=== PATIENT | male | born 1960 | race Caucasian/White ===

== ENCOUNTER 2017-10-17 21:39 | Inpatient (IN) | payer OTHER ==
[~2017-10-17] VITALS: Ht 170.2 cm; Wt 86.2 kg
[2017-10-17] MEDS ORDERED: AMITRIPTYLINE100 M2 PO (21:58)
[2017-10-17] MEDS ORDERED: NEURONTIN800 M2 PO (21:58)
[2017-10-17] MEDS ORDERED: CLONAZEPAM2 M2 PO (21:59)
--- NOTE | 2017-10-17 23:06 | ED PSYCHIATRIC COMPLAINT ---
History of Present Illness General Chief Complaint: Psychiatric Related Complaint Stated Complaint: "I WANT TO HURT MYSELF AND MY X /HEARING VOICE Source: patient Exam Limitations: no limitations Vital Signs & Intake/Output Vital Signs & Intake/Output Vital Signs Date Time Temp Pulse Resp B/P B/P Pulse O2 O2 Flow FiO2 Mean Ox Delivery Rate 10/17 2320 98.2 90 18 107/61 98 Room Air 10/17 2306 Room Air 10/17 2142 97.0 95 16 147/89 95 Room Air Allergies Coded Allergies: amoxicillin (Intermediate, RASH 10/17/17) morphine (Intermediate, HIVES 10/17/17) Reconcile Medications Amitriptyline HCl 100 MG TABLET 1 TAB PO QHS SLEEP (Reported) Clonazepam 2 MG TABLET 1 TAB PO TID ANXIETY/PANIC ATTACKS (Reported) Gabapentin (Neurontin) 800 MG TABLET 1 TAB PO TID SEIZURES (Reported) Triage Note: PT TO ED C/O HEARING VOICES TELLING HIM "TO END IT." STATES MOVED HERE RECENTLY AND HASNT TAKEN MEDS IN A WHILE. ALSO HAVING THOUGHTS TO HARM EX WELL. DENIES PLAN. Triage Nurses Notes Reviewed? yes Onset: 3 days Duration: day(s):, constant, continues in ED, getting worse Timing: recent history Severity: moderate, severe Associated Symptoms: anxiety, insomnia, suicidal ideation HPI: 3 days prior to admission patient has been without his psychiatric medications moving from [place] to [place]. During this time he has had increasing auditory command hallucinations to kill himself and his ex-. He also complains of rash of poison mark anthony. He denies fever chills nausea vomiting diarrhea abdominal pain chest pain shortness breath headache dysuria bleeding. Past History Travel History Traveled to [place] past 21 day No Medical History Any Pertinent Medical History? see below for history Psychiatric: anxiety, depression, METHADONE MAINTENANCE Surgical History Surgical History: non-contributory Psychosocial History What is your primary language Indonesian Tobacco Use: Current Daily Use Daily Tobacco Use Amount/Type: => 5 Cigarettes daily ETOH Use: denies use Illicit Drug Use: denies illicit drug use Family History Hx Contributory? No Review of Systems Review of Systems Constitutional: Reports: no symptoms. EENTM: Reports: no symptoms. Respiratory: Reports: no symptoms. Cardiovascular: Reports: no symptoms. GI: Reports: no symptoms. Genitourinary: Reports: no symptoms. Musculoskeletal: Reports: no symptoms. Skin: Reports: no symptoms. Neurological/Psychological: Reports: see HPI, anxiety, depressed. Hematologic/Endocrine: Reports: no symptoms. Immunologic/Allergic: Reports: no symptoms. All Other Systems: Reviewed and Negative Physical Exam Physical Exam General Appearance: well developed/nourished, alert, awake, anxious, moderate distress Head: atraumatic, normal appearance Eyes: Bilateral: PERRL, EOMI. Ears, Nose, Throat: normal pharynx, normal ENT inspection, hearing grossly normal Neck: normal inspection, supple Respiratory: normal breath sounds Cardiovascular: regular rate/rhythm Gastrointestinal: soft, non-tender Extremities: normal range of motion Neurological/Psychiatric: no motor/sensory deficits, awake, alert, anxious, single needle operator II-XII nml as tested, oriented x 3 Appearance/Memory/Insight: impaired insight Behavoir/Eye Contact/Speech: cooperative, normal speech Thoughts/Hallucinations: auditory hallucinations Skin: intact, normal color, warm/dry, rash SAD PERSONS SAD PERSONS Response Value Male Sex? yes 1 Age <19 or >45 years? yes 1 Depression/Hopelessness? yes 2 Previous Attempts/Psych Care yes 1 Rational Thinking Loss? yes 2 Single//? yes 1 Social Support? has no support 1 Stated Future Intent? yes 2 Total 11 SAD PERSONS Done? yes Progress Differential Diagnosis: drug intoxication, drug overdose, drug withdrawal, electrolyte abnormality, hypoglycemia Plan of Care: Orders Procedure Date/time Status Regular Diet 10/18 B Active Continuous Observation Monitor 10/18 629 Active Continuous Observation Monitor 10/18 229 Active Continuous Observation Monitor 10/18 2231 Active URINE DRUG SCREEN FOR ER ONLY 10/18 2231 Complete ETHANOL 10/18 2231 Complete COMPREHENSIVE METABOLIC PANEL 10/18 2231 Complete CBC WITHOUT DIFFERENTIAL 10/18 2231 Complete ED CRISIS PSYCH CONSULT 10/18 2231 Active Current Medications Sig/Alvin Start time Last Medication Dose Stop Time Status Admin Prednisone 20 MG BID 10/18 899 UNVr Diphenhydramine HCl 50 MG Q6 PRN 10/18 99 UNVr (Benadryl) Prednisone 60 MG ONCE ONE 10/18 99 UNVr 10/18 0334 Amitriptyline HCl 100 MG AT BEDTIME 10/17 2229 UNVr 10/17 (Elavil 50 MG Tablet) 2332 Clonazepam 2 MG TID 10/17 2229 UNVr 10/17 (Klonopin 1MG Tab) 10/24 2228 233 Gabapentin 800 MG TID 10/17 2229 UNVr 10/17 (Neurontin) 233 Laboratory Tests 10/18/17 0051: Anion Gap 5, Estimated GFR > 60, BUN/Creatinine Ratio 18.8, Glucose 97, Calcium 9.5, Total Bilirubin 0.4, AST 18, ALT 33, Alkaline Phosphatase 55, Total Protein 6.7, Albumin 3.9, Globulin 2.8, Albumin/Globulin Ratio 1.4, CBC w Diff NO MAN DIFF REQ, RBC 4.15 L, MCV 88.4, MCH 30.5, MCHC 34.5, RDW 13.2, MPV 7.1 L, Gran % 63.0, Lymphocytes % 28.4, Monocytes % 5.7, Eosinophils % 2.6, Basophils % 0.3, Absolute Granulocytes 5.2, Absolute Lymphocytes 2.3, Absolute Monocytes 0.5, Absolute Eosinophils 0.2, Absolute Basophils 0, Serum Alcohol < 10.0 10/17/172257: Urine Opiates Screen < 100, Methadone Screen > 735 H, Barbiturate Screen < 60, Ur Phencyclidine Scrn < 6.00, Amphetamines Screen 107, U Benzodiazepines Scrn 146, Urine Cocaine Screen < 50, Urine Cannabis Screen 6.60 Hand-Off Endorsed To: Krzysztof CALLE,Neal Endorsed Time: 0700 Pending: consult Departure Departure Disposition: STILL A PATIENT Condition: Stable Clinical Impression Primary Impression: Depression with suicidal ideation Secondary Impressions: Auditory hallucinations, Poison mark anthony dermatitis Referrals: Unknown (PCP/Family) Departure Forms: Customer Survey General Discharge Information
[2017-10-18 01:05] LABS: ABSOLUTE BASOPHIL COUNT 0 /CUMM (0.0-0.2); ABSOLUTE EOSINOPHIL COUNT 0.2 /CUMM (0.0-0.7); ABSOLUTE GRANULOCYTE CT 5.2 /CUMM (1.4-6.5); ABSOLUTE LYMPH COUNT 2.3 /CUMM (1.2-3.4); ABSOLUTE MONOCYTE COUNT 0.5 /CUMM (0.10-0.60); BASOPHIL % 0.3 % (0.0-2.0); EOSINOPHIL % 2.6 % (0-5); HEMATOCRIT 36.7 % (42-52); MEAN CORPUSCULAR HGB 30.5 PG (27.0-31.0); MEAN CORPUSCULAR HGB CONC 34.5 G/DL (33.0-37.0); MEAN CORPUSCULAR VOLUME 88.4 FL (80.0-94.0); MEAN PLATELET VOLUME 7.1 FL (7.4-10.4); PLATELET COUNT 255 /CUMM (130-400); RBC DISTRIBUTION WIDTH 13.2 % (11.5-14.5); RED BLOOD CELL CT 4.15 /CUMM (4.70-6.10); WHITE BLOOD CELL COUNT 8.2 /CUMM (4.8-10.8)
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
--- NOTE | 2017-10-18 16:03 | RADIOLOGY REPORT ---
EXAMINATION: XR ELBOW, LEFT CLINICAL INFORMATION: Elbow pain. Pain and swelling. COMPARISON: None TECHNIQUE: AP, lateral, and oblique views of the left elbow performed on 4 images. FINDINGS: No acute fracture or dislocation. Severe degenerative change seen at the medial elbow joint with narrowing of the ulna humeral joint, spurring and cystic change seen. The radiohumeral joint is intact and unremarkable. There is prominent enthesopathic ossification along the ulnar olecranon with overlying prominent soft tissue swelling. There is also some enthesopathic ossification along the medial humeral epicondyles at the common extensor tendon insertion. No significant elbow joint effusion is seen. No definite loose bodies within the joint are seen. IMPRESSION: 1. No acute fracture or dislocation. 2. Severe degenerative changes at the medial elbow joint. 3. Large hepatic spur at the ulna olecranon with overlying soft tissue swelling. 4. Mild enthesopathic spurring at the medial humeral epicondyle.
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
[2017-10-18 19:27] VITALS: BP 124/72
[2017-10-19 07:34] VITALS: BP 141/81
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
--- NOTE | 2017-10-19 14:43 | History & Physical ---
General Information and HPI MD Statement: I have seen and personally examined CLAUDIA CUMMINGS and documented this H&P. The patient is a 56 year old M who presented with a patient stated chief complaint of hallucinations Source of Information: patient Exam Limitations: no limitations History of Present Illness: 56-year-old male with past medical history significant for depression and, anxiety, methadone dependence, history of traumatic brain injury and a seizure disorder admitted to [facility] after he was hearing voices to harm himself and his ex-. Patient apparently fell off the hill and hit his head to the [place]. He was seen at [facility] and was cleared to get discharged. During that fall he had an exposure to poison roxanna and developed a rash. In the emergency room he was started on the prednisone. Psychiatry team wants me to taper the prednisone. He also scraped his left elbow. Currently his only concern is about his methadone. He denies any shortness of breath, chest pain, abdominal pain. Allergies/Medications Allergies: Coded Allergies: amoxicillin (Intermediate, RASH 10/17/17) morphine (Intermediate, HIVES 10/17/17) Home Med list Amitriptyline HCl 100 MG TABLET 1 TAB PO QHS SLEEP (Reported) Clonazepam 2 MG TABLET 1 TAB PO TID ANXIETY/PANIC ATTACKS (Reported) Gabapentin (Neurontin) 800 MG TABLET 1 TAB PO TID SEIZURES (Reported) Past History Travel History Traveled to [place] past 21 day No Medical History Neurological: seizure EENT: NONE Respiratory: NONE Gastrointestinal: NONE Hepatic: NONE Musculoskeletal: NONE Psychiatric: anxiety, depression, METHADONE MAINTENANCE Endocrine: NONE Blood Disorders: NONE Cancer(s): NONE RESEARCH ATTORNEY/Reproductive: NONE History of MRSA: No History of VRE: No History of CDIFF: No Isolation History: Standard Surgical History Surgical History: non-contributory Past Family/Social History Family History Relations & Conditions if any FATHER Relation not specified for: FH: CAD (coronary artery disease) Psychosocial History Where do you live? Home ETOH Use: denies use Illicit Drug Use: denies illicit drug use Review of Systems Review of Systems Constitutional: Reports: see HPI. EENTM: Reports: see HPI. Cardiovascular: Reports: see HPI. Respiratory: Reports: see HPI. GI: Reports: see HPI. Skin: Reports: see HPI. Neurological/Psychological: Reports: see HPI. Exam & Diagnostic Data Last 24 Hrs of Vital Signs/I&O Vital Signs Date Time Temp Pulse Resp B/P B/P Pulse O2 O2 Flow FiO2 Mean Ox Delivery Rate 10/19 1424 Room Air 10/19 0734 98.2 71 141/81 10/18 1927 98.3 75 124/72 10/18 1707 98.1 93 18 128/80 94 Room Air Intake & Output 10/19 1600 10/19 0800 10/19 0000 Intake Total Output Total Balance Patient 190 lb 190 lb Weight Physical Exam General Appearance Alert, Oriented X3, Cooperative Skin Poison ROXANNA rash Neck Supple Cardiovascular Regular Rate, Normal S1, Normal S2 Lungs Clear to Auscultation Abdomen Normal Bowel Sounds, Soft, No Tenderness Neurological Cranial Nerves II through XII: Inatct Last 24 Hrs of Labs/Leon: Laboratory Tests 10/18 10/17 0051 2258 Chemistry Sodium (137 - 145 mmol/L) 139 Potassium (3.5 - 5.1 mmol/L) 4.1 Chloride (98 - 107 mmol/L) 100 Carbon Dioxide (22 - 30 mmol/L) 34 H Anion Gap (5 - 16) 5 BUN (9 - 20 mg/dL) 15 Creatinine (0.7 - 1.2 mg/dL) 0.8 Estimated GFR (>60 ml/min) > 60 BUN/Creatinine Ratio (7 - 25 %) 18.8 Glucose (65 - 99 mg/dL) 97 Hemoglobin A1c (4.2 - 5.8 %) 5.7 Calcium (8.4 - 10.2 mg/dL) 9.5 Total Bilirubin (0.2 - 1.3 mg/dL) 0.4 AST (17 - 59 U/L) 18 ALT (21 - 72 U/L) 33 Alkaline Phosphatase (< 127 U/L) 55 Total Protein (6.3 - 8.2 g/dL) 6.7 Albumin (3.5 - 5.0 g/dL) 3.9 Globulin (1.9 - 4.2 gm/dL) 2.8 Albumin/Globulin Ratio (1.1 - 2.2 %) 1.4 Triglycerides (<150 mg/dL) 134 Cholesterol (< 200 MG/DL) 183 LDL Cholesterol, Calc (65 - 129 mg/dL) 109 HDL Cholesterol (40 - 60 mg/dL) 48 Cholesterol/HDL Ratio (0.00 - 4.88 %) 4 TSH &T3 &Free T4 Intrp (0.27 - 4.20 uIU/mL) 1.940 Hematology CBC w Diff NO MAN DIFF REQ WBC (4.8 - 10.8 /CUMM) 8.2 RBC (4.70 - 6.10 /CUMM) 4.15 L Hgb (14.0 - 18.0 G/DL) 12.7 L Hct (42 - 52 %) 36.7 L MCV (80.0 - 94.0 FL) 88.4 MCH (27.0 - 31.0 PG) 30.5 MCHC (33.0 - 37.0 G/DL) 34.5 RDW (11.5 - 14.5 %) 13.2 Plt Count (130 - 400 /CUMM) 255 MPV (7.4 - 10.4 FL) 7.1 L Gran % (42.2 - 75.2 %) 63.0 Lymphocytes % (20.5 - 51.1 %) 28.4 Monocytes % (1.7 - 9.3 %) 5.7 Eosinophils % (0 - 5 %) 2.6 Basophils % (0.0 - 2.0 %) 0.3 Absolute Granulocytes (1.4 - 6.5 /CUMM) 5.2 Absolute Lymphocytes (1.2 - 3.4 /CUMM) 2.3 Absolute Monocytes (0.10 - 0.60 /CUMM) 0.5 Absolute Eosinophils (0.0 - 0.7 /CUMM) 0.2 Absolute Basophils (0.0 - 0.2 /CUMM) 0 Toxicology Urine Opiates Screen (>2000 NG/ML) < 100 Methadone Screen (>300 NG/ML) > 735 H Barbiturate Screen (>200 NG/ML) < 60 Ur Phencyclidine Scrn (>25 NG/ML) < 6.00 Amphetamines Screen (>1000 NG/ML) 107 U Benzodiazepines Scrn (>200 NG/ML) 146 Urine Cocaine Screen (>300 NG/ML) < 50 Urine Cannabis Screen (>50 NG/ML) 6.60 Serum Alcohol (<10 MG/DL) < 10.0 Assessment/Plan Assessment: 56-year-old male with history significant for depression, anxiety, methadone dependence, traumatic brain injury and seizure disorder admitted to [facility] secondary to having auditory hallucinations of harming himself and his ex-. Continue Neurontin which he takes for his seizure disorder. Patient is concerned about his methadone. I conveyed this message to the and [facility] nursing staff. His vital signs are stable. I have reviewed his labs. Further psychiatric management will be up to the psychiatrist. As Ranked By This Provider Problem List: 1. Depression with suicidal ideation 2. Auditory hallucinations 3. Poison roxanna dermatitis 4. Seizure disorder Miscellaneous Miscellaneous Documentation Attending Case Discussed With: Rossana Gonzalez MD Primary Care Physician: Unknown Patient sees these Specialists Unknown Level of Patient Care: [facility]
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
--- NOTE | 2017-10-19 15:42 | SOCIAL WORKER PROG NOTE PSYCH ---
Dejuan Langston 10/19/17 1540: Social Work Progress Note Progress Note I Dejuan Langston (SUPERVISOR [employer] [address] National Coverage Specialist) met with John in his room to complete his social history. The patient was lying in bed for the session. He was engaged and cooperative during the conversation. He appeared to be guarded when asked about his past substance use treatment.
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
[2017-10-19 19:51] VITALS: BP 140/77
[2017-10-20 06:59] VITALS: BP 126/77
[2017-10-20 07:42] VITALS: BP 126/77
--- NOTE | 2017-10-20 13:58 | CP SOUTH PROGRESS NOTE PSYCH ---
Psych (Inpt) Progress Note Progress Note Include the following elements, when applicable: Involvement in the active treatment of the patient with behavioral observations of the patient and the patient's response to the treatment. Review of the ongoing treatment process in the context of the treatment plan. Indication of how multi-disciplinary staff members are carrying out the treatment plan. Plans for future interventions and recommendations for revision of the treatment plan. Liaison with other physicians/providers. Progress Note: Case discussed with nurse, who reports that the patient endorses suicidal ideation. Wants more methadone. Wants an increase in nicotine gum to 4 mg. Hyperverbal. Patient seen at 10:26 AM. Wants an increase in Nicorette dose to 4 mg and I made this change. Wants methadone increased to 50 mg and I defer this to his methadone clinic. Reports he woke up at 6 a.m. with terrible, terrible thoughts of hurting himself but not his ex-. Affect is somewhat intense. Tolerating medications well, without complaint. Reports ongoing command auditory hallucinations to hurt himself. Reports mood is relaxed from a hot shower. Rates sad mood 7/10 and anxiety 9/10. Feels hopeless, worthless and guilty. Denies feeling helpless. Reports suicidal ideation. Gives a safety promise for here. Denies homicidal ideation. Denies visual hallucinations and paranoid ideation. Reports he had 2 middle of the night awakenings. Appetite is fine. Energy is a little bit sluggish. Patient agreed to an increase in Risperdal dose to 1 mg twice daily. IMPRESSION: Slow progress. Continue present treatment plan. Continues to require inpatient level of care.
[2017-10-20 19:54] VITALS: BP 148/82
[2017-10-21 07:39] VITALS: BP 136/74
--- NOTE | 2017-10-21 14:59 | CP SOUTH PROGRESS NOTE PSYCH ---
Psych (Inpt) Progress Note Progress Note Include the following elements, when applicable: Involvement in the active treatment of the patient with behavioral observations of the patient and the patient's response to the treatment. Review of the ongoing treatment process in the context of the treatment plan. Indication of how multi-disciplinary staff members are carrying out the treatment plan. Plans for future interventions and recommendations for revision of the treatment plan. Liaison with other physicians/providers. Progress Note: Case and treatment plan discussed with nurse, who reports that the patient is endorsing suicidal ideation. Uses foul language. Was loud on the phone. Got an order from hospitalist for Percocet for his arm. Nurse reported to me that staff overheard patient on the phone stating the only reason he is here is because he has no place to go. Patient seen at 11:21 AM. States he is okay, up and down. Affect is calm and depressed. Reports that "when my girl starts giving me a hard time, the voices start going towards me and my ex-." States he just got off the phone with his girlfriend and she hung up. Reports now he has command auditory hallucinations to hurt himself, his ex- and his girlfriend. Claims his girlfriend gives him a hard time. Mood is terrible. Rates sad mood and anxiety both 9/10. Feels hopeless, helpless and worthless but not guilty. Does not want to end his life but the voices make him feel that way. He gives a safety promise for here. Does not want to hurt anyone. Denies visual hallucinations but sees himself ending his life. Denies paranoid ideation. Reports he slept well with Percocet. I advised him that he will not be receiving additional opiates. Appetite is okay. Tolerating medications well, without complaint. He agrees to increase Risperdal dose to 1.5 mg twice daily. IMPRESSION: Slow progress. Continue present treatment plan. Remains symptomatic in the context of apparent homelessness. Reporting that command auditory hallucinations worsen related to stress from girlfriend. Monitor response to increase in Risperdal dose.
[2017-10-21 20:00] VITALS: BP 147/90
[2017-10-22 07:34] VITALS: BP 143/80
--- NOTE | 2017-10-22 13:51 | CP SOUTH PROGRESS NOTE PSYCH ---
Psych (Inpt) Progress Note Progress Note Include the following elements, when applicable: Involvement in the active treatment of the patient with behavioral observations of the patient and the patient's response to the treatment. Review of the ongoing treatment process in the context of the treatment plan. Indication of how multi-disciplinary staff members are carrying out the treatment plan. Plans for future interventions and recommendations for revision of the treatment plan. Liaison with other physicians/providers. Inpatient progress note PROGRESS NOTE/TREATMENT REVIEW PATIENT INFORMATION John Salas admitted for SI AH HI, on methadone. TREATMENT TEAM Reviewed by Treatment Team, following member present: nurse, health social work professor, faculty physicians. John voiced SI this am despite being slated for possible d/ c. Upset about methadone dose. VITAL SIGNS/RESULTS Stable QTc under 450 10/19 24 HOUR LAB RESULTS Laboratory Tests 10/20/17 0655: Amitriptyline Pending, Amitriptyline&Nortrip Pending, Nortriptyline Pending SCHEDULED MEDICATIONS Current Medications Sig/Alvin Start time Last Medication Dose Route Stop Time Status Admin Al Hydroxide/Mg 30 ML Q4-6 PRN PRN 10/19 1215 AC Hydroxide PO Amitriptyline HCl 100 MG AT BEDTIME 10/17 2230 AC 10/21 PO 2011 Bacitracin 1 CHOLO DAILY 10/19 1320 AC 10/22 TOP 0806 Benztropine Mesylate 1 MG Q6P PRN 10/19 1215 AC PO Benztropine Mesylate 1 MG Q6P PRN 10/19 1215 AC IM Clonazepam 2 MG TID 10/17 2230 AC 10/22 PO 10/24 2229 0802 Diphenhydramine HCl 50 MG Q6 PRN 10/18 0100 AC 10/18 PO 1706 Gabapentin 800 MG TID 10/18 2100 AC 10/22 PO 0800 Haloperidol 2 MG ONCE PRN 10/22 1345 UNVr PO Haloperidol 5 MG Q6P PRN 10/19 1215 AC PO Haloperidol 5 MG Q6P PRN 10/19 1215 AC IM Ibuprofen 800 MG Q6P PRN 10/18 1730 AC 10/21 PO 1356 Lorazepam 2 MG Q6P PRN 10/19 1215 AC IM Magnesium Hydroxide 30 ML AT BEDTIME PRN 10/19 1215 AC PO Methadone HCl 40 MG DAILY 10/18 1429 AC 10/22 PO 0803 Nicotine 4 MG Q2P PRN 10/20 1045 AC 10/21 PO 1523 Prednisone 5 MG DAILY 10/23 09 AC PO 10/23 914 Prednisone 10 MG DAILY 10/22 899 DC 10/22 PO 10/22 914 0800 Risperidone 1.5 MG BID 10/21 2100 AC 10/22 PO 0801 PHYSICAL AND MENTAL STATUS EXAM Musculoskeletal: gait, station is within normal limits; tremor Constitutional: Looks agitated Attention/concentration: fair Orientation: Oriented Mood: Agitated, upset, "all over the place" Affect: dysphoric, shaking leg, anxious Motor Activity: psychomotor agitation Speech: stops and starts, normal volume Thought Process: mostly linear Associations: intact Suicidal Ideation: Yes, no intent will tell someone if he feels worse Homicidal Ideation: Toward ex , voices turning to thoughts Delusions: Unclear Hallucination: CH to hurt Insight/Judgment: poor/poor DIAGNOSIS Evidence supports a principle diagnosis of: Admitted with bipolar, OUD Extended Problem List: AH CH disorganization agitation OUD Treatment Plan Update/Medical Decision Making The multidisciplinary treatment team continues to implement the following: ASked him to get a one time prn of 2 haldol for his acute distress. Risperdal being increased today to 1.5 mg BID. Monitor for safety, med effects. Psychiatric status The patients admission and precautionary status, medication administration, and safety since last assessment have been reviewed. Social work continuing to coordinate care and discharge planning and collateral information has been reviewed. Continued Stay Criteria (select all that apply) Suicidal and homicidal; mood dysregulation Psychiatric decision making is as follows: Not safe for d/c Medical status Continue monitoring vital signs, current DVT prophylaxis, and diet Laboratory studies, radiology results, ECG, or other information reviewed and discussed with patient and plan to address comorbid medical conditions as follows: will have to increase methadone at clinic Substance use disorder Nicotine replacement treatment as indicated I re-certify that this inpatient psychiatric hospital admission is medically necessary for diagnostic study and/or active treatment, which could reasonably be expected to improve the patient's condition.
--- NOTE | 2017-10-22 16:50 | SOCIAL WORKER PROG NOTE PSYCH ---
Social Work Progress Note Progress Note Dr. Malave and this automobile service writer met with the patient. He reported, "my thoughts are all crazy." He reported poor sleep. He stated that he was having alot of thoughts to hurt himself and also reported thoughts to hurt his ex-. Patient stated that he did not want to act on these thoughts but found them to be intrustive and that they begin as AH and transition to thought. He discussed being unhappy with his current relationship. Patient reported SI/HI/AH. Patient and Dr. Malave addressed medications.
--- NOTE | 2017-10-22 19:21 | SOCIAL WORKER PROG NOTE PSYCH ---
Social Work Progress Note Progress Note Determination Status: PENDED The services requested require additional review. You will be contacted regarding the status of this request if further information is needed. An authorization decision will be made within the required timeframes and details of that decision may be found under the member's authorization history. Member Name Member ID Member Subscriber Name Subscriber ID CLAUDIA CUMMINGS [id number] 1960 CLAUDIA CUMMINGS [id number] Pended Authorization # Client Authorization # Type of Request [id number] CONCURRENT Date of Admission/ Start of Services Requested From Submission Date 10/18/2017 10/22/2017 10/22/2017 Level of Service Type of Service Level of Care Type of Care INPATIENT/[facility]PATIENT [facility]OSPITAL Reason Code P76 Provider Name & Address Provider ID Provider Alternate ID NPI # for Authorization [facility] [address] [facility] [id number] N/A
[2017-10-22 19:52] VITALS: BP 138/76
[2017-10-23 07:50] VITALS: BP 126/68
--- NOTE | 2017-10-23 17:02 | SOCIAL WORKER PROG NOTE PSYCH ---
Social Work Progress Note Progress Note Keely Cade and this loan underwriter met wiht the patient. He reported his mood as "good. I feel excellent." He reported ongoing SI with a plan to "jump in front of a train." He denied HI today. He stated that yesterday he had been experiencing command AH to "remove her [ex-] from the picture." He denied having this thought today. Patient stated that he feels that the medications are helpful in managing his symptoms. He denied AH/VH/hallucinations. He stated that he would like to return to [facility] in [place] for Methadone, return to [facility] for case management with Kylee Renner and [facility] for IOP/Anger Management. Patient stated that he had already completed an intake with [facility] in [place] for Anger Management and was recommended to attend IOP. He stated that he had also contact [facility] for IOP, but does not plan to return and does not want a referral to their program. Patient and Darren Cade will work together to obtain an IOP intake with [facility]. He stated that we do not need to be in contact with Kylee Renner.
[2017-10-23 20:05] VITALS: BP 145/87
[2017-10-23 23:39] VITALS: BP 149/73
--- NOTE | 2017-10-23 23:42 | PN- Att Addend ---
Attending Addendum Attending Brief Note I was called around 11 PM by nursing staff to evaluate this patient because she thought he was confused. Nurse reported that when she asked the patient the date he said today was the rather than the . She also reported that while walking towards his room he stated he was going to the kitchen rather than usual. She felt this was a change from his baseline. Nurse reported that patient was alert and oriented 3. Reported that patient was conversant appropriately and had no obvious deficits. I found the patient ambulating freely around the unit. Gait was steady. He was alert and oriented 3 conversant appropriately. Speech was intact. He denied any symptoms. On presentation he had auditory hallucinations. He denied any hallucinations at present. Patient reports his only issue is that she takes Elavil at bedtime. He states that when he takes this medication at bedtime he goes to sleep right away. He is of the impression that he has not received his Elavil tonight however nursing staff report that the medication has been administered. Nursing staff reports that he was placed on a CIWA protocol on admission however this has been discontinued. He is not showing any signs of alcohol withdrawal at present. General appearance: Well-developed and not in any acute distress. HEENT: Face is symmetric. No droop. Anicteric, no pallor, pupils equal and reactive. Tongue is midline. Neurologic: Power is 5/5 in all extremities. No pronator drift. She is not tremulous. Neck: Supple with no jugular venous distention. Heart: S1-S2 regular with no audible murmur. Lungs: Adequate and symmetric air entry bilaterally with no added sounds. Abdomen: Nondistended with normal bowel sounds. Soft, nontender with no palpable masses. Extremities: No pedal edema. No cyanosis. Skin: Intact Recommendations: -No gross neurologic deficit noted. -Recommend continued close monitoring. -If he continues to complain of insomnia recommend following up with the psychiatry service.
[2017-10-24 08:11] VITALS: BP 136/77
--- NOTE | 2017-10-24 12:40 | CP SOUTH PROGRESS NOTE PSYCH ---
Psych (Inpt) Progress Note Progress Note Include the following elements, when applicable: Involvement in the active treatment of the patient with behavioral observations of the patient and the patient's response to the treatment. Review of the ongoing treatment process in the context of the treatment plan. Indication of how multi-disciplinary staff members are carrying out the treatment plan. Plans for future interventions and recommendations for revision of the treatment plan. Liaison with other physicians/providers. Inpatient progress note PROGRESS NOTE/TREATMENT REVIEW TREATMENT TEAM Reviewed by Treatment Team, following member present: nurse, delinquency prevention social worker, faculty physicians; pt fighting with another pt on unit. Inappropriate relations with female pt/ Still stating suicidal. Subjective Assessment/Chief Complaint/Interval History/ROS I saw pt briefly while he was eating lunch as he was in group prior. stated he was feeling better on a more even keel. Seemed less emotional, more organized. Communication was improved. Looked content eating lunch. Pleasant on exam. Did not voice Si or AH at that time. VITAL SIGNS/RESULTS stable MEDICATIONS Current Medications Sig/Alvin Start time Last Medication Dose Route Stop Time Status Admin Al Hydroxide/Mg 30 ML Q4-6 PRN PRN 10/19 1215 AC Hydroxide PO Amitriptyline HCl 100 MG AT BEDTIME 10/17 2230 AC 10/24 PO 2145 Bacitracin 1 CHOLO DAILY 10/19 1320 AC 10/24 TOP 0845 Benztropine Mesylate 1 MG Q6P PRN 10/19 1215 AC 10/23 PO 1503 Benztropine Mesylate 1 MG Q6P PRN 10/19 1215 AC IM Clonazepam 0 .STK-MED ONE 10/25 0054 DC PO Clonazepam 1 MG ONCE ONE 10/25 0045 DC 10/25 PO 10/25 0046 0052 Clonazepam 1 MG ONCE PRN 10/25 0045 DC PO 10/25 0500 Clonazepam 2 MG TID 10/17 2230 DC 10/24 PO 10/24 2229 2145 Diphenhydramine HCl 50 MG Q6 PRN 10/18 0100 AC 10/18 PO 1706 Gabapentin 800 MG TID 10/18 2100 AC 10/24 PO 2145 Haloperidol 2 MG ONCE PRN 10/22 1345 AC 10/23 PO 1503 Haloperidol 5 MG Q6P PRN 10/19 1215 AC PO Haloperidol 5 MG Q6P PRN 10/19 1215 AC IM Ibuprofen 800 MG Q6P PRN 10/18 1730 AC 10/21 PO 1356 Lorazepam 2 MG Q6P PRN 10/19 1215 AC IM Magnesium Hydroxide 30 ML AT BEDTIME PRN 10/19 1215 AC PO Methadone HCl 40 MG DAILY 10/18 1429 AC 10/24 PO 0843 Nicotine 4 MG Q2P PRN 10/20 1045 AC 10/24 PO 1812 Risperidone 2 MG BID 10/24 2100 DC PO Risperidone 0.5 MG BID 10/24 2100 AC PO Risperidone 0.5 MG ONCE ONE 10/24 1030 DC 10/24 PO 10/24 1031 1124 Risperidone 1.5 MG BID 10/21 2100 DC 10/24 PO 0841 PHYSICAL AND MENTAL STATUS EXAM Musculoskeletal: gait station is within normal limits, no tremor Constitutional: general appearance wnl. no acute distress Attention/concentration: fair, improved Mood: improved, did not voice SI or other complaints Affect: calm, congruent Motor Activity:wnl Speech:more clear, normal rate volume Thought Process: more linear Associations:intact Suicidal Ideation: none on my exam Homicidal Ideation:no Delusions: did not voice Hallucination: did not endorse Insight/Judgment: poor Memory: adequate DIAGNOSIS Evidence supports a principle diagnosis of: Bipolar with psychotic features ?TBI component OUD Extended Problem List: SI HI behavioral dysregulation AH worse when he talks to GF confusion mildly stuporous or disorganized Treatment Plan Update/Medical Decision Making The multidisciplinary treatment team continues to implement the following: Medication titration monitoring for psychosis Monitoring behavior Monitoring safety for Si, fighting Psychiatric status The patients admission and precautionary status, medication administration, and safety since last assessment have been reviewed. Social work continuing to coordinate care and discharge planning and collateral information has been reviewed. Psychiatric decision making is as follows: Requires IP level of care until stabilizes Psychotropic medication recommendations, titrating risperdal: is at 1.5 mg but pt is somewhat disorganized and confused, oversedated. will not increase. Medical status Continue monitoring vital signs, current DVT prophylaxis, and diet Laboratory studies, radiology results, ECG, or other information reviewed and discussed with patient and plan to address comorbid medical conditions if necessary Substance use disorder Nicotine replacement treatment as indicated I re-certify that this inpatient psychiatric hospital admission is medically necessary for diagnostic study and/or active treatment, which could reasonably be expected to improve the patient's condition.
--- NOTE | 2017-10-24 15:12 | CP SOUTH PROGRESS NOTE PSYCH ---
Psych (Inpt) Progress Note Progress Note Include the following elements, when applicable: Involvement in the active treatment of the patient with behavioral observations of the patient and the patient's response to the treatment. Review of the ongoing treatment process in the context of the treatment plan. Indication of how multi-disciplinary staff members are carrying out the treatment plan. Plans for future interventions and recommendations for revision of the treatment plan. Liaison with other physicians/providers. Progress Note: Case and treatment plan discussed in team meeting. Staff reports that the patient is endorsing suicidal ideation. He has been displaying difficult behaviors. Reportedly started to fight with people. We are looking into referral to [facility]. Reportedly denying having auditory hallucinations since Sunday. Was oversedated yesterday. Patient seen at 10:18 AM. Reports last night was extremely tough for him. States there was a lot of chaos going on here. Reports it turns out that he was given the blame. Reports the phone was down. Affect is calm and blunted. Reports feeling very agitated, "hungover," from the "lack of tolerance that I was getting blamed for." Rates sad mood -09/21. Rates anxiety 11/21. Feels hopeless. Denies feeling hopeless or worthless. Feels guilty "if I was wrong on the phone." Reports having suicidal ideation "to an extent, everybody would be better off without me." Reports having homicidal thoughts towards "anybody who gets in my way." Reports ongoing auditory hallucinations and that they are not better. He reports he has had no opportunity for positive voices to come into his life. Denies visual hallucinations and paranoid ideation. States he did not sleep. Appetite is fine. Energy is high. Tolerating medications. Patient denies being homeless, stating that he can live at his fiance's home or at his own home. Nursing staff contacted me this afternoon to report that the patient is confused. Afternoon Klonopin and gabapentin were held. I interviewed the patient again this afternoon. Reported feeling "very inadequate, taken advantage of by staff." Reports the place is a hospital in [place]. Stated he saw a mouse go by. Gives the year as 2018. IMPRESSION: Slow progress. Continue present treatment plan. This morning I increased Risperdal dose to 2 mg twice daily but nursing staff believes that the Risperdal is making the patient more confused. At this point, I am reducing Risperdal back down to 0.5 mg twice daily. Continue to monitor for confusion.
--- NOTE | 2017-10-24 17:02 | SOCIAL WORKER PROG NOTE PSYCH ---
Social Work Progress Note Progress Note This service writer met with the patient at 1:15pm. He described his mood as "it's not too bad right now." We met in his room and he referred to the kitchen as "the other building" and indicated that he believed that we had walked to another building to meet in his room. He identified being in "[facility]" in the "[place]." He believed today to be Sunday. Patient stated that he had felt "pretty good all day" and reported experiencing SI once during lunch today. He denied HI and stated that he last experienced HI "about four nights ago." He denied AH/VH and stated that he last experienced AH "at the other house while I was combing my hair." He stated that the AH consisted of command hallucinations in which he hears a voice telling him to "fk that, go hurt her. She deserves it." in reference to his ex-." He stated that he has not heard voices giving him specific commands today, and explained that previous days the voices have instructed him to grab a knife or pistol (which would cost him $300 from a friend) to harm her. Patient expressed sadness over these voices as he stated that he would never harm his ex- as he cares for her and she is the mother of his children. Patient is agreeable to a family meeting with his girlfriend, but would like to speak with her about it first as he stated that she is not likely to agree. He stated that he would attempt to reach her this afternoon and inform this service writer when he has done so. This service writer checked in with the patient during the afternoon and he had not spoken with her. This service writer shared the above information with Dr. Driver and Wojciech Barr.
[2017-10-24 19:52] VITALS: BP 137/78
[2017-10-25 07:45] VITALS: BP 147/74
--- NOTE | 2017-10-25 11:49 | SOCIAL WORKER PROG NOTE PSYCH ---
Social Work Progress Note Progress Note CLAUDIA CUMMINGS [id number] 1960 CLAUDIA CUMMINGS [id number] Pended Authorization # Client Authorization # Type of Request [id number] CONCURRENT Date of Admission/ Start of Services Requested From Submission Date 10/18/2017 10/25/2017 10/25/2017
[2017-10-25 12:04] LABS: ABSOLUTE BASOPHIL COUNT 0 /CUMM (0.0-0.2); ABSOLUTE EOSINOPHIL COUNT 0.2 /CUMM (0.0-0.7); ABSOLUTE GRANULOCYTE CT 7.6 /CUMM (1.4-6.5); ABSOLUTE LYMPH COUNT 1.7 /CUMM (1.2-3.4); ABSOLUTE MONOCYTE COUNT 0.6 /CUMM (0.10-0.60); BASOPHIL % 0.1 % (0.0-2.0); EOSINOPHIL % 2.1 % (0-5); GRANULOCYTE % 74.7 % (42.2-75.2); HEMATOCRIT 38.8 % (42-52); MEAN CORPUSCULAR HGB 30.3 PG (27.0-31.0); MEAN CORPUSCULAR HGB CONC 34.3 G/DL (33.0-37.0); MEAN CORPUSCULAR VOLUME 88.4 FL (80.0-94.0); MEAN PLATELET VOLUME 7.3 FL (7.4-10.4); PLATELET COUNT 241 /CUMM (130-400); WHITE BLOOD CELL COUNT 10.2 /CUMM (4.8-10.8)
--- NOTE | 2017-10-25 13:59 | CP SOUTH PROGRESS NOTE PSYCH ---
Psych (Inpt) Progress Note Progress Note Include the following elements, when applicable: Involvement in the active treatment of the patient with behavioral observations of the patient and the patient's response to the treatment. Review of the ongoing treatment process in the context of the treatment plan. Indication of how multi-disciplinary staff members are carrying out the treatment plan. Plans for future interventions and recommendations for revision of the treatment plan. Liaison with other physicians/providers. Progress Note: Case and treatment plan discussed in team meeting. Staff reports that the patient is denying SI. He was very agitated this morning and security was called. Dr. Rome consulted yesterday for confusion and his consult is appreciated. Amitriptyline level returned slightly below therapeutic. Patient seen at 10:52 a.m. Seems less confused that yesterday. Awake, alert and in behavioral control. He was nodding off in group prior to meeting with me in conference room. He remembers me and is oriented to person, place and year, but gave the month as September. Correctly named the president. Feels like "a pile of sh*t," and he believes it is due to Risperdal, which he is now refusing. I have consequently stopped the Risperdal. It is difficult to tell if the patient has actual confusion or whether there could be a component of malingering. He stated "yesterday, we went outside the front door and I thought we were somewhere else." Describes mood as "happy with my mood." Rates sad mood 6/10. Reports having anxiety, a ball in his chest, and rates it 7/10. Denies feeling hopeless, helpless, worthless or guilty. Denies suicidal and homicidal ideation. Reports auditory hallucinations persist and have been present for a year. Denies visual hallucinations, stating "not anything to talk about." Denies paranoid ideation. Reports sleep is okay and appetite is fantastic. Energy is okay. IMPRESSION: Slow progress. Continue present treatment plan. I ordered several lab studies for this morning as part of the workup for patient's confusion. Most of them were unremarkable except for sodium slightly low at 136. Hopefully patient will be ready for discharge tomorrow or Sunday. We are planning a couple's meeting with his girlfriend for tomorrow morning. Monitor response to discontinuation of Risperdal.
--- NOTE | 2017-10-25 17:42 | SOCIAL WORKER PROG NOTE PSYCH ---
Social Work Progress Note Progress Note This magnetic tape typewriter operator joined the meeting between the patient and Dr. Driver. He denied SI/ HI and stated that he has continued AH, which has been ongoing for the past year. When asked about VH, patient stated, "it's not anything to talk about." Patient stated that he slept "ok" and has "ok" energy. He was agreeable to calling his girlfriend to schedule a family meeting. We did so together ( Delilah Xavier - [phone]) and scheduled the meeting for 10:30am on . Patient is interested in discharging tomorrow and plans to return to live with his girlfriend. Patient plans to engage in IOP at [facility] and return to [facility] for Methadone treatment. Upon his request, patient was provided with the number to [place] [address]. Patient requested that this magnetic tape typewriter operator contact his shoe parts caser, Kylee Renner. She left a for this magnetic tape typewriter operator earlier today and this magnetic tape typewriter operator returned the call to both numbers provided: [phone]
[2017-10-25 21:34] VITALS: BP 136/86
[2017-10-26 08:11] VITALS: BP 126/59
[2017-10-26] MEDS ORDERED: AMITRIPTYLINE100 M2 PO (11:49)
[2017-10-26] MEDS ORDERED: NICORELIEF4 MG PO (11:49)
[2017-10-26] MEDS ORDERED: METHADONE HCL10 M1 PO (11:49)
[2017-10-26] MEDS ORDERED: NEURONTIN800 M2 PO (11:49)
[2017-10-26] MEDS ORDERED: KLONOPIN1 M1 PO ×2 (11:55→12:06)
--- NOTE | 2017-10-26 12:13 | Patient Discharge Instructions ---
Psych Discharge Inst General Discharge Information Reason for Admission: CAH to kill self and ex-. Psy Discharge Primary Diag+ Bipolar d/o, depressed w/ psychotic features Psy Discharge Secondary Diag+ PTSD Opioid dependence on methadone maint. Poison mark anthony dermatitis Hx TBI Hx CVA Hx seizure disorder Superficial wound L elbow Summary Tests/Major Procedures Lab ALT 54 U/L 10/25/17 1140 AST 42 U/L 10/25/17 1140 Ammonia < 9 umol/L L 10/25/17 1140 BUN 29 mg/dL H 10/25/17 1140 BUN/Creatinine Ratio 41.4 % H 10/25/17 1140 Carbon Dioxide 32 mmol/L H 10/25/17 1140 Chloride 94 mmol/L L 10/25/17 1140 Cholesterol 183 MG/DL 10/18/17 0051 Cholesterol/HDL Ratio 4 % 10/18/17 0051 Creatinine 0.7 mg/dL 10/25/17 1140 Estimated GFR > 60 ml/min 10/25/17 1140 HDL Cholesterol 48 mg/dL 10/18/17 0051 Hemoglobin A1c 5.7 % 10/18/17 0051 LDL Cholesterol, Calc 109 mg/dL 10/18/17 0051 Potassium 4.6 mmol/L 10/25/17 1140 Sodium 136 mmol/L L 10/25/17 1140 TSH &T3 &Free T4 Intrp 1.940 uIU/mL 10/18/17 0051 Triglycerides 134 mg/dL 10/18/17 0051 Absolute Granulocytes 7.6 /CUMM H 10/25/17 1140 Hct 38.8 % L 10/25/17 1140 Hgb 13.3 G/DL L 10/25/17 1140 Lymphocytes % 16.9 % L 10/25/17 1140 MPV 7.3 FL L 10/25/17 1140 RBC 4.40 /CUMM L 10/25/17 1140 WBC 10.2 /CUMM 10/25/17 1140 Amitriptyline&Nortrip 92 mcg/L L 10/20/17 0655 Methadone Screen > 735 NG/ML H 10/17/17 2258 Serum Alcohol < 10.0 MG/DL 10/18/17 0051 SERVICE DATE: 10/18/17 EXAM TYPE: RAD - XRY-ELBOW 3 OR MORE VIEWS, L EXAMINATION: XR ELBOW, LEFT CLINICAL INFORMATION: Elbow pain. Pain and swelling. COMPARISON: None TECHNIQUE: AP, lateral, and oblique views of the left elbow performed on 4 images. FINDINGS: No acute fracture or dislocation. Severe degenerative change seen at the medial elbow joint with narrowing of the ulna humeral joint, spurring and cystic change seen. The radiohumeral joint is intact and unremarkable. There is prominent enthesopathic ossification along the ulnar olecranon with overlying prominent soft tissue swelling. There is also some enthesopathic ossification along the medial humeral epicondyles at the common extensor tendon insertion. No significant elbow joint effusion is seen. No definite loose bodies within the joint are seen. IMPRESSION: 1. No acute fracture or dislocation. 2. Severe degenerative changes at the medial elbow joint. 3. Large hepatic spur at the ulna olecranon with overlying soft tissue swelling. 4. Mild enthesopathic spurring at the medial humeral epicondyle. EKG 10/19/17 was normal. Studies Pending at DC: None. Patient Instructions Contact Information Your Psychiatrist on [facility] was Darnell Driver MD * If you are experiencing an emergency related to this hospitalization, please call [phone] to contact the treating psychiatrist or the psychiatrist-on- call. * To Request a copy of your medical records, please contact the Medical Records Department at [phone]. * To request results of studies pending at the time of discharge, please call [phone]. * Continue your Medications until directed to stop by your Healthcare provider. General Medication Information Please continue to take your new medications and your continued home medications , unless otherwise indicated on your discharge medication list, or unless directed by your MD or PATIENT BILLER to stop them. Special Instructions Diet Regular Activity Normal Other Inst/Recommendations Please see PCP about abnormal labs listed above. Stay clean and sober! - Tobacco Use Treatment Offered Post DC Medications Offered: Script Given-See Med List Post DC Tobacco Treatment Plan: [facility] Program Appt Date: 10/31/17 Program Appt Time: 1600 - EtOH/Drug Use D/O Treatment Offered Post DC Medications Offered: Script Given-See Med List (On methadone maintenance @ [facility]) Post DC EtOH/SubAbuse TX Plan: Other SubAbuse/Dual Pgm ([facility]) Program Appt Date: 10/29/17 (tentative) Program Appt Time: 0900 (tentative) Metabolic Screening ([x]) Not Applicable, patient not on a neuroleptic. OR () Patient on a neuroleptic(s) . Enter below results for Hemoglobin A1C, and lipid panel if obtained during the last 365 days. BMI: 29.700 Blood Pressure: 126/59 Laboratory Results From [facility] EHR (If applicable): Advance Directives Does the Patient have Medical Advance Directives No/Refused further info Does Pt have Psychiatric Advance Directives? No/Refused further info Does Patient have a Designated Surrogate Decision Maker: No Information About Psychiatric Advance Directives Provided? Refused Discharge Plan Post Hospital Treatment Plan: Returning to home and girlfriend.
--- NOTE | 2017-10-26 14:50 | CP SOUTH PROGRESS NOTE PSYCH ---
Psych (Inpt) Progress Note Progress Note Include the following elements, when applicable: Involvement in the active treatment of the patient with behavioral observations of the patient and the patient's response to the treatment. Review of the ongoing treatment process in the context of the treatment plan. Indication of how multi-disciplinary staff members are carrying out the treatment plan. Plans for future interventions and recommendations for revision of the treatment plan. Liaison with other physicians/providers. Progress Note: Case and treatment plan discussed in team meeting. Staff reports that the patient is denying suicidal ideation. Couple's meeting was planned for 10:30 AM. Patient seen at 10:30 AM with medical student. Patient appears awake and alert. States he is okay and feels very strong. Affect is calm and blunted. Reports mood is very up in the air. Reports he feels hurt and disappointed by staff here. Eager for discharge. Rates sad mood 3/10 and anxiety 9/10. Denies feeling hopeless. Feels helpless and worthless somewhat. Feels guilty. Denies suicidal ideation. Denies homicidal ideation. Denies homicidal thoughts towards girlfriend and towards ex-. Regarding auditory hallucinations, stated "I've had a very good day as far as they're concerned and I'm happy." Denies hearing voices today. Denies visual hallucinations. Feels that there is a man who is out to harm him over patient's $30 debt. Patient is oriented 3. Reports sleep was very good last night. Appetite is great. Describes energy as "it's there." Tolerating medications well. Patient claims that he lost his Klonopin supply when he fell down a hill. I informed him I will order Klonopin at 1 mg 4 times daily 10 days' supply. Patient will be discharged today to home and girlfriend with referral back to [facility] for methadone maintenance and referral to [facility] in [place] for IOP. We will provide him a bridging medication management appointment at [facility]. IMPRESSION: Condition improved. Okay for discharge today with plan as above.
--- NOTE | 2017-10-26 14:57 | DISCHARGE SUMMARY REPORT-PSYCH ---
Visit Information Visit Dates/Diagnosis' Admission Date: 10/18/17 Discharge Date: 10/26/17 Reason for Admission: CAH to kill self and ex-. Psy Discharge Primary Diag: Bipolar d/o, depressed w/ psychotic features Psy Discharge Secondary Diag: PTSD Opioid dependence on methadone maint. Poison mark anthony dermatitis Hx TBI Hx CVA Hx seizure disorder Superficial wound L elbow Hospital Course Significant Lab Findings: Lab ALT 54 U/L 10/25/17 1140 AST 42 U/L 10/25/17 1140 Ammonia < 9 umol/L L 10/25/17 1140 BUN 29 mg/dL H 10/25/17 1140 BUN/Creatinine Ratio 41.4 % H 10/25/17 1140 Carbon Dioxide 32 mmol/L H 10/25/17 1140 Chloride 94 mmol/L L 10/25/17 1140 Cholesterol 183 MG/DL 10/18/17 0051 Cholesterol/HDL Ratio 4 % 10/18/17 0051 Creatinine 0.7 mg/dL 10/25/17 1140 Estimated GFR > 60 ml/min 10/25/17 1140 HDL Cholesterol 48 mg/dL 10/18/17 0051 Hemoglobin A1c 5.7 % 10/18/17 0051 LDL Cholesterol, Calc 109 mg/dL 10/18/17 0051 Potassium 4.6 mmol/L 10/25/17 1140 Sodium 136 mmol/L L 10/25/17 1140 TSH &T3 &Free T4 Intrp 1.940 uIU/mL 10/18/17 0051 Triglycerides 134 mg/dL 10/18/17 0051 Absolute Granulocytes 7.6 /CUMM H 10/25/17 1140 Hct 38.8 % L 10/25/17 1140 Hgb 13.3 G/DL L 10/25/17 1140 Lymphocytes % 16.9 % L 10/25/17 1140 MPV 7.3 FL L 10/25/17 1140 RBC 4.40 /CUMM L 10/25/17 1140 WBC 10.2 /CUMM 10/25/17 1140 Amitriptyline&Nortrip 92 mcg/L L 10/20/17 0655 Methadone Screen > 735 NG/ML H 10/17/17 2258 Serum Alcohol < 10.0 MG/DL 10/18/17 0051 SERVICE DATE: 10/18/17-1517 EXAM TYPE: RAD - XRY-ELBOW 3 OR MORE VIEWS, L EXAMINATION: XR ELBOW, LEFT CLINICAL INFORMATION: Elbow pain. Pain and swelling. COMPARISON: None TECHNIQUE: AP, lateral, and oblique views of the left elbow performed on 4 images. FINDINGS: No acute fracture or dislocation. Severe degenerative change seen at the medial elbow joint with narrowing of the ulna humeral joint, spurring and cystic change seen. The radiohumeral joint is intact and unremarkable. There is prominent enthesopathic ossification along the ulnar olecranon with overlying prominent soft tissue swelling. There is also some enthesopathic ossification along the medial humeral epicondyles at the common extensor tendon insertion. No significant elbow joint effusion is seen. No definite loose bodies within the joint are seen. IMPRESSION: 1. No acute fracture or dislocation. 2. Severe degenerative changes at the medial elbow joint. 3. Large hepatic spur at the ulna olecranon with overlying soft tissue swelling. 4. Mild enthesopathic spurring at the medial humeral epicondyle. EKG 10/19/17 was normal. Course Complications: None. Consultations: Patient was seen by Dr. Andersen for admission H&P. Per her note of 10/19/17, "Assessment: 56-year-old male with history significant for depression, anxiety, methadone dependence, traumatic brain injury and seizure disorder admitted to [facility] secondary to having auditory hallucinations of harming himself and his ex-. Continue Neurontin which he takes for his seizure disorder. Patient is concerned about his methadone. I conveyed this message to the and [facility] nursing staff. His vital signs are stable. I have reviewed his labs. Further psychiatric management will be up to the psychiatrist." Patient was seen by Dr. Rome on 10/23/17 for confusion. Please refer to Dr. Rome's note for additional information. Allergies: Coded Allergies: amoxicillin (Intermediate, RASH 10/17/17) morphine (Intermediate, HIVES 10/17/17) Hospital Course/TX Response: The patient was monitored on the unit for safety, psychosis and mood disturbance. He participated in multimodal treatments on the unit. The patient was continued on methadone 40 mg daily. Klonopin was continued at 2 mg t.i.d. and Neurontin was continued. Amitriptyline was continued at 100 mg qhs. Risperdal was added for auditory hallucinations. Dose was increased and patient became confused. Ultimately, the patient was taken off of Risperdal. Auditory hallucinations and suicidal and homicidal thoughts have remitted. Patient may have been malingering during this hospital stay. It was suspected that there may been some secondary gain to his remaining here, although specifics were not clear. Progress note from date of discharge, 10/26/17: "Case and treatment plan discussed in team meeting. Staff reports that the patient is denying suicidal ideation. Couple's meeting was planned for 10:30 AM. Patient seen at 10:30 AM with medical student. Patient appears awake and alert. States he is okay and feels very strong. Affect is calm and blunted. Reports mood is very up in the air. Reports he feels hurt and disappointed by staff here. Eager for discharge. Rates sad mood 10 and anxiety /. Denies feeling hopeless. Feels helpless and worthless somewhat. Feels guilty. Denies suicidal ideation. Denies homicidal ideation. Denies homicidal thoughts towards girlfriend and towards ex-. Regarding auditory hallucinations, stated "I've had a very good day as far as they're concerned and I'm happy." Denies hearing voices today. Denies visual hallucinations. Feels that there is a man who is out to harm him over patient's $30 debt. Patient is oriented 3. Reports sleep was very good last night. Appetite is great. Describes energy as "it's there." Tolerating medications well. Patient claims that he lost his Klonopin supply when he fell down a hill. I informed him I will order Klonopin at 1 mg 4 times daily 10 days' supply. Patient will be discharged today to home and girlfriend with referral back to [facility] for methadone maintenance and referral to [facility] in [place] for IOP. We will provide him a bridging medication management appointment at [facility]. IMPRESSION: Condition improved. Okay for discharge today with plan as above." Discharge HBIPS - Tobacco Use Treatment Offered Post DC Medications Offered: Script Given-See Med List Post DC Tobacco Treatment Plan: [facility] Program Appt Date: 10/31/17 Program Appt Time: 1600 - EtOH/Drug Use D/O Treatment Offered Post DC Medications Offered: Script Given-See Med List (on methadone) Post DC EtOH/SubAbuse TX Plan: Other SubAbuse/Dual Pgm ([facility]) Program Appt Date: 10/29/17 Program Appt Time: 1230 Metabolic Screening - Screen if on a Neuroleptic Medication - Metabolic screening should include: - Blood Pressure, BMI, Glucose or Hgb A1c, & a - Lipid profile from within the past 365 days. Metabolic Screening ([x]) Not Applicable, patient not on a neuroleptic. OR () Patient on a neuroleptic(s) . Enter below results for Hemoglobin A1C, and lipid panel if obtained during the last 365 days. BMI: 29.700 Blood Pressure: 126/59 Laboratory Results From [facility] (If applicable): Discharge Instructions General Discharge Information Multiple Neuroleptics: ([x]) Not Applicable OR Document below three failed attempts at monotherapy, or a plan to taper to monotherapy, or augmentation of Clozapine. () Discharge Diet Regular Discharge Activity Normal DC Disposition: Returning to home and girlfriend. Referrals Ordered Referrals Provider Referral 11/05/17 For Providers: [[facility]] For Groups: [Intensive Outpatient] [address] [phone] Patient will utilize walk in hours on 10/29/17, between 12:30-3pm IOP intake walk in hours: Sunday 12:30-3pm Sunday 12:30-3pm 12:30-3pm Provider Referral 10/27/17 For Groups: [[facility]] [facility] ([facility]) [address] [place] [address] Patient will present to [facility] on, 10/27/17 between 6:30am and 10:30am. Outpatient Psych - Substance 11/06/17 [address] [place] [address] [facility] [address] [place], [place] [phone] Medication/Bridge appointment: 11/06/17, at 2:15pm with Dr. Sharma please bring insurance card and ID Provider Referral 10/31/17 For Providers: [[facility]] For Groups: [Smoking Cessation Group] [facility] [address] [phone] Group meets every other Sunday at 4pm Next group: 10/31/17 at 4pm Prescriptions Stop taking the following medications: Clonazepam (Clonazepam) 2 MG TABLET ORAL THREE TIMES DAILY Continue taking these medications: Gabapentin (Neurontin) 800 MG TABLET 1 Tablet ORAL THREE TIMES DAILY Qty = 42 Comments: Last Taken:10/26/17 Time:9AM This prescription has been renewed Amitriptyline HCl (Amitriptyline HCl) 100 MG TABLET 1 Tablet ORAL TAKE AT BEDTIME Qty = 14 Comments: Last Taken:10/25/17 Time:9PM This prescription has been renewed Start taking the following new medications: Clonazepam (Klonopin) 1 MG TABLET 1 Tablet ORAL 4 TIMES A DAY Qty = 40 No Refills Instructions: called in. ecps module not working Comments: Last Taken:ON 10/26/17 2MG GIVEN AT 9AM Time: TO START THIS DOSE UPON DISCHARGE Nicotine Polacrilex (Nicorelief) 4 MG GUM 1 Gum ORAL EVERY 2 HOURS NEEDED as needed for nicotine craving Qty = 100 No Refills Comments: Last Taken:10/25/17 Time:6PM Methadone Hydrochloride (Methadone HCl) 10 MG TABLET 40 Milligram ORAL DAILY Qty = 1 No Refills Comments: Last Taken:10/26/17 Time:9AM Other Inst/Recommendations Please see PCP about abnormal labs listed above. Stay clean and sober! Studies Pending at Discharge None. Copies To: LOR[facility]
--- NOTE | 2017-10-26 16:37 | SOCIAL WORKER PROG NOTE PSYCH ---
Kira Cade 10/26/17 1635: Social Work Progress Note Faxed Referral(s) Referred To: [facility] Transition of Care Documents sent: Health Summary Faxed to: [facility] Fax #: [phone] Faxed by: Radha Date faxed: 10/26/17 Time Faxed: [phone] Comment: Kira Cade (Tish)-Psychiatric Community Health Worker
--- NOTE | 2017-10-26 16:39 | SOCIAL WORKER PROG NOTE PSYCH ---
Kira Cade 10/26/17 1637: Social Work Progress Note Faxed Referral(s) Referred To: Outpatient Transition of Care Documents sent: Health Summary Faxed to: Outpatient Fax #: [phone] Faxed by: Radha Date faxed: 10/26/17 Time Faxed: [phone] Comment: Kira Cade (Tish)-Psychiatric Community Health Worker
--- NOTE | 2017-10-26 17:27 | SOCIAL WORKER PROG NOTE PSYCH ---
Social Work Progress Note Progress Note This automatic typewriter inspector was informed by nursing that the patient had been overheard on the phone yelling at his girlfriend and stating that there would not be a family meeting. This automatic typewriter inspector met with the patient who confirmed that the family meeting was cancelled because of "her [patient's girlfriend's] attidude." He stated that she would still come to the hospital to provide transportation home. Patient was agreeable to going to [facility] in [place] for his intake on 11/05/17. He was also informed of the walk in hours. This automatic typewriter inspector spoke with Carlotta at [facility] who stated that the patient may utilize the walk in hours on Sunday between 9am and 1:30pm should he wish to engage in treatment earlier. He may keep the intake appointment if he is unable to present on . Patient was agreeable to this plan, however, stated that he would utilize the walk in hours on 10/30/17. This automatic typewriter inspector was also informed by Carlotta that the patient would be unable to see a prescriber until "sometime in November." Patient was given a bridge appointment with [facility] (11/06/17 at 2:15pm), which he accepted, due to the wait time. This automatic typewriter inspector spoke with Maricel at [facility] who stated that the patient is to present to their clinic on 10/27/17, between 6:30am and 10:30am for Methadone. She stated that he will see the doctor on 10/29/17. Patient denied SI/HI/hallucinations/violent thoughts. He also denied any HI/ violent thoughts towards his ex-. This automatic typewriter inspector inquired about his comment yesterday regarding VH ("it's not anything to talk about."), to which the patient clarified that he was not having any VH then or today. Patient stated that he is interested in individual therapy once he completes IOP. He stated that he is familiar with [facility] and plans to contact them after completing IOP. Patient stated that he feels safe to discharge from the hospital today. He identified a safety plan of "go to the hospital" and also accepted crisis numbers and warm lines. Patient was informed of the discharge process in that once documents are completed by Dr. Driver, this automatic typewriter inspector and nursing, nursing staff will review the discharge documents with the patient prior to discharge. Patient was in agreement with this. Patient was informed that this automatic typewriter inspector was unsuccessful in attempts to reach his case aide, Kylee Renner. Patient stated that he will contact her after discharge. Upon patient's girlfriend's arrival to [facility] this morning, a family meeting was requested, at approximately 11am. This automatic typewriter inspector and Gilda (medical student) met with the patient and his girlfriend, Delilah or "Naina". Naina denied having any safety concerns for discharge. We reviewed the discharge plan, at which time Naina stated that the patient could not go to the [facility] in [place] as it is not a "good place for him to be." He was agreeable to going to the [facility] and was provided with their walk in hours, to which he stated he would utilize on 10/29/17. Patient denied access to guns, which Naina confirmed. Upon informing Naina of the discharge process (as explained to the patient above) they both became very upset stating that they did not want to wait. Ultimately, patient was agreeable to staying and we agreed that he would contact her once he is ready to discharge. This automatic typewriter inspector spoke with Rivera with the [facility] in [place] regarding medication management. She stated that they have an COMMUNITY PLANNER on Wednesdays and believes that the patient may be able to see her on 10/31/17 or 11/07/17, as long as the patient attends an intake prior to those appointments. She could not guarantee, however , that he would be seen on those dates and after speaking with Dr. Driver, patient will keep the [facility] bridge appointment. Patient stated that he would call [facility]PS should this no longer be needed. A vm was left for [facility] in [place] informing of the bridge appointment and requesting that they contact [facility] ([phone]) if the bridge appointment is no longer needed. This automatic typewriter inspector's number and the [facility] number ([phone]) was provided. After returning to the unit, patient informed this automatic typewriter inspector that the court needed to be contacted as he had been unable to confirm if the letter was received. En route to the conference room to make this call, patient appeared agitated that he could not leave and complained about interactions with staff. He stated that he wanted to file a complaint and would be contacting a medical lab technician after discharge. Upon returning to the conference room patient's agitation continued, using profanity in reference to staff. Patient was not redirectable and the phone call to the court was halted and would be later revisited. In response to patient's request to file a complaint, this automatic typewriter inspector contacted patient safety and spoke with Lea (ext. [phone]). Patient was more agreeable to a second attempt to contact the [facility]. We spoke with Afia at the [facility] ([phone]) who stated that she had not received a letter previously and stated that a warrant was out for the patient's arrest (Romero Lion, [facility] stated that he had faxed a letter to the court while the patient was in the ER). This automatic typewriter inspector was unable to speak with Romero Lion today regareding this matter, and Afia requested that a new letter was sent to them. Patient reviewed the letter prior to faxing and it was faxed to [phone] at 12:08pm. This automatic typewriter inspector and patient spoke with Afia at 12:17pm who confirmed receipt of the letter, and upon reviewing it with her salon supervisor, informed the patient that he must go to court on 10/29/17 in order for the warrant to be vacated. Patient verbally acknowledged understanding of this. Patient stated that while he had planned to go to [facility] in [place] on Sunday for the IOP intake, if his court date (10/29/17) conflicts with the walk in hours, he will go to [facility] on Sunday (10/30/18). During this time that we were calling the court, patient's girlfriend arrived on the unit to provide transportation home. Patient was upset that she could not "hang out here" while waiting for discharge documents to be completed. This automatic typewriter inspector reminded the patient that we needed additional time as the discharge plan had changed (from [facility] in [place] to [facility] in [place]), the patient was requesting to call the court and the patient requested to file the complaint ( and speak with patient safety). This automatic typewriter inspector also reminded him that we had planned that he would call his girlfriend when a discharge time was identified. Patient met with Lea from patient safety prior to leaving [facility]. This automatic typewriter inspector attended that meeting. Patient thanked us for the time. He proceeded to the nurse's station to review discharge documents and then left the unit.
--- NOTE | 2017-10-26 17:29 | SOCIAL WORKER PROG NOTE PSYCH ---
Kira Cade 10/26/17 1727: Social Work Progress Note Progress Note Psychiatric Community Health Worker Note This typewriter tester made 4 attempts to fax the patient health summary to [facility] at [phone]. A call to confirm the fax number was made at 5:06pm but the office was closed. A call will be made on Sunday morning to re-confirm the fax number. Kira "Radha" Rayo Psychiatric [facility] Worker Taylor Flowers 10/26/17 1834: Social Work Progress Note Progress Note This typewriter tester informed SCOO[facility] Nurse and Wojciech Barr LCSW about the attempts to fax the documents.
== END 2017-10-26 13:12 | DRG 753 ==
LOC: ERH 21:39 → ERHI 10-18 11:22 → CP SOUTH 10-18 11:22 → ENTRNSPT 10-18 18:34 → CP SOUTH 10-18 19:05 → EDTRNSPTSTS 10-18 19:05 → CMPTRNSPT 10-18 19:08 → CP SOUTH 10-18 21:39
PROVIDERS: Emergency Medicine; Psychiatry & Neurology Psychiatry
DX: F31.5 Bipolar disorder, current episode depressed, severe, with psychotic features (principal); F43.10 Post-traumatic stress disorder, unspecified; F11.20 Opioid dependence, uncomplicated; G40.909 Epilepsy, unspecified, not intractable, without status epilepticus; S51.012A Laceration without foreign body of left elbow, initial encounter; X58.XXXA Exposure to other specified factors, initial encounter; Z86.73 Personal history of transient ischemic attack (TIA), and cerebral infarction without residual deficits; L23.7 Allergic contact dermatitis due to plants, except food; Z87.820 Personal history of traumatic brain injury; Z88.0 Allergy status to penicillin; Z88.5 Allergy status to narcotic agent
CPT/HCPCS: 36415; 73080-LT; 80307; 82436; 93005; 93010; G0480; J0515; J1630; J7512